=== PATIENT | male | born 1970 | race Caucasian/White ===

== ENCOUNTER 2018-03-22 02:31 | Emergency (ER) | payer MEDICAID ==
[~2018-03-22] VITALS: Ht 182.9 cm; Wt 104.3 kg
[~2018-03-22 02:31] MED LIST: Ativan1 MG PO; BELPTAB PR; Coumadin5 MG PO; DIAZ5 PO; ENOX80I SC; ERYT.5TO OD; HYDACE5 PO; HYDMOR4 PO; LAVAP17G PO; LISI5 PO; LISINOPRIL; LORA10 PO; OXYACE5T PO; OXYACE7.5T PO; PRAV10 PO; Percocet 5-3251 EACH PO; Senna S Tablet1 EACH PO; TAMS.4ER PO; WARF1; WARF10 PO; ZESTORETIC 20-121 EA PO
== END 2018-03-22 03:27 | disposition home or self-care (01) ==
LOC: ER 02:31
DX: K64.4 Residual hemorrhoidal skin tags (principal); I10 Essential (primary) hypertension; F17.210 Nicotine dependence, cigarettes, uncomplicated; Z91.048 Other nonmedicinal substance allergy status; Z79.899 Other long term (current) drug therapy; Z87.442 Personal history of urinary calculi
CPT/HCPCS: 96372; 99282-25; J1885

== ENCOUNTER → 2021-12-15 | Outpatient (CLI) | payer BC | END | disposition home or self-care (01) | LOC: LAB 12:05 → LAB SHORT 12:05 | DX: S90.822A Blister (nonthermal), left foot, initial encounter (principal); B35.3 Tinea pedis; L29.9 Pruritus, unspecified; Z87.2 Personal history of diseases of the skin and subcutaneous tissue; X58.XXXA Exposure to other specified factors, initial encounter | CPT/HCPCS: 87070; 87106; 87205 ==